=== PATIENT | female | born 1965 | race Two or more races ===

== ENCOUNTER 2020-03-20 09:48 | Outpatient (CLI) | payer BC | END 2020-03-20 23:59 | disposition home or self-care (01) | LOC: MSC 09:48 | PROVIDERS: ATTEND Internal Medicine | DX: R51 Headache (principal); F41.0 Panic disorder [episodic paroxysmal anxiety]; N95.1 Menopausal and female climacteric states ==

== ENCOUNTER 2020-04-10 09:22 | Outpatient (CLI) | payer BC | END 2020-04-10 23:59 | disposition home or self-care (01) | LOC: MSC 09:22 | PROVIDERS: ATTEND Internal Medicine | DX: R51 Headache (principal); F41.0 Panic disorder [episodic paroxysmal anxiety]; N95.1 Menopausal and female climacteric states ==

== ENCOUNTER 2020-05-01 08:54 | Outpatient (CLI) | payer BC | END 2020-05-01 23:59 | disposition home or self-care (01) | LOC: MSC 08:54 | PROVIDERS: ATTEND Internal Medicine | DX: F41.0 Panic disorder [episodic paroxysmal anxiety] (principal); R51.9 Headache, unspecified; N95.1 Menopausal and female climacteric states; E78.5 Hyperlipidemia, unspecified; Z79.899 Other long term (current) drug therapy ==

== ENCOUNTER 2020-05-06 11:55 | Outpatient (CLI) | payer BC | END 2020-05-06 23:59 | disposition home or self-care (01) | LOC: MSC 11:55 | PROVIDERS: ATTEND Internal Medicine | DX: R51.9 Headache, unspecified (principal); F41.0 Panic disorder [episodic paroxysmal anxiety]; N95.1 Menopausal and female climacteric states; E78.5 Hyperlipidemia, unspecified ==

== ENCOUNTER 2020-07-01 12:25 | Outpatient (CLI) | payer BC | END 2020-07-01 23:59 | disposition home or self-care (01) | LOC: MSC 12:25 | PROVIDERS: ATTEND Internal Medicine | DX: N95.1 Menopausal and female climacteric states (principal); R51.9 Headache, unspecified; F41.0 Panic disorder [episodic paroxysmal anxiety]; E78.5 Hyperlipidemia, unspecified ==